=== PATIENT | male | born 1945 | race Caucasian/White ===

== ENCOUNTER 2017-01-21 07:07 | Day surgery (SDC) | payer MEDICARE, BC ==
--- NOTE | 2017-01-18 14:08 | HP ---
CC: Dr. Galicia * HISTORY AND PHYSICAL: DATE OF PLANNED ADMISSION AND SURGERY: 01/21/17 CHIEF COMPLAINT: Mr. Saucedo is a 71-year-old white male who is admitted with bladder outlet obstruction and bladder calculi for cystoscopy and cystolitholapaxy. I have been following Mr. Saucedo for several years because of bladder outlet obstruction and prostate enlargement. He has been maintained on tamsulosin and finasteride. More recently, his voiding has become more bothersome with increasing urgency, frequency, and decreased urinary stream. He also noted episodes of gross hematuria. He was worked up with renal ultrasound, which showed normal kidneys. Bladder ultrasound showed an enlarged prostate and there were 2 to 3 bladder calculi. Cystoscopy showed an enlarged prostate and there were 2 bladder calculi noted measuring about 1.5 cm each. Postvoid bladder ultrasound showed good bladder emptying. Because of the above history and findings, the patient is admitted for cystolitholapaxy. I gave him the option of performing a transurethral resection of the prostate at the same time, but he felt that his voiding is adequate on the medical treatment, and will hold off on the TURP at this time. PAST MEDICAL HISTORY AND SYSTEM REVIEW: He is a nonsmoker. He has history of thoracic aortic aneurysm, which has been stable for the last 5 years and is followed by the [facility]. He has hypertension, elevated lipids. He denies any history of coronary artery disease. MEDICATIONS: He is maintained on: 1. Lisinopril 5 mg daily. 2. Fluticasone 50 mcg. 3. Hydroxyzine 25 mg 3 times per day. 4. Inhalers for asthma. 5. Vitamins. ALLERGIES: He denies any allergies to medications. I am including the last cardiology note from his visit in May 2016. 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 He stopped smoking in 1975. No alcohol intake. PHYSICAL EXAMINATION GENERAL: Moderately overweight, otherwise healthy looking white male, who looks his age. VITAL SIGNS: Blood pressure 136/90, pulse of 70. LUNGS: Clear. HEART: Regular and rhythmic. No murmurs. ABDOMEN: Soft. No masses, no tenderness. No CVA tenderness. GENITALIA: External genitalia are normal. RECTAL: Shows a moderately enlarged, but nonsuspicious prostate. IMPRESSION: 1. Bladder outlet obstruction with bladder calculi. 2. Hypertension. 3. Stable thoracic aortic aneurysm. PLAN: Plan is for cystoscopy and cystolitholapaxy. I discussed the above plans in detail with the patient. All his questions were answered. [id number]/[facility] #: [id number] ULYSSES
[~2017-01-21 07:07] MED LIST: Buffered Lidocaine 0.9% SYRIN* 5 ML/SYR SYRINGE INTRADERM ONE
[2017-01-21] MEDS ORDERED: Buffered Lidocaine 0.9% SYRIN* 5 ML/SYR SYRINGE ONE (07:35)
[2017-01-21] MEDS ORDERED: ceFAZolin 2 GM PREMIX (*) 50 ML IVPB ONE (07:36)
[2017-01-21] MEDS ORDERED: fentaNYL* 50 MCG/ML 2 ML VIAL (100 MCG VIAL) ONE (09:03)
[2017-01-21] MEDS ORDERED: Chloroprocaine 2%* 20 ML VIAL ONE (09:03)
[2017-01-21] MEDS ORDERED: Midazolam* 1 MG/ML 5 ML VIAL (5 MG) ONE (09:03)
[2017-01-21] MEDS ORDERED: fentaNYL* 50 MCG/ML 2 ML VIAL (100 MCG VIAL) IV PRN (09:25)
[2017-01-21 11:19] VITALS: BP 105/76
--- NOTE | 2017-01-22 02:51 | OP ---
CC: Dr. Galicia* DATE OF OPERATION: 01/21/17 - [facility] DATE OF : 41 SURGEON: Mino Murillo MD. ANESTHESIOLOGIST: Dr. Roberto Parry. ANESTHESIA: Spinal. PRE-OP DIAGNOSES: 1. Benign prostatic hyperplasia. 2. Bladder calculi. POST-OP DIAGNOSES: 1. Benign prostatic hyperplasia. 2. 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 3. Two bladder calculi (1-1.5 cm each). OPERATIVE PROCEDURES: 1. Cystoscopy. 2. Cystolithopaxy (2 calculi 1 to 1.5 cm each). INDICATION FOR PROCEDURE: Mr. Saucedo is a 71-year-old white male who has a long history of bladder outlet obstruction caused by prostate enlargement. He responded well to medical treatment with tamsulosin and finasteride and has adequate bladder emptying. He was worked up because of hematuria. Renal ultrasound was normal. Cystoscopy showed 2 bladder calculi measuring 1 to 1.5 cm each. The patient is admitted for cystolithopexy. PATHOLOGY AT CYSTOSCOPY: The penile and bulbar urethrae looked normal. The prostatic urethra measured about 2.5 to 3 cm in length and there was a moderate degree of obstruction by trilobar hyperplasia of the prostate. At the level of the verumontanum, there was a false passage or duplicated prostatic urethra. 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 No suspicious lesions were seen in it. Examination of the bladder showed moderate diffuse trabeculations. There were no suspicious bladder lesions seen. The ureteral orifices looked normal. There were 2 calculi measuring 1 to 1.5 cm each in the base of the bladder. DESCRIPTION OF PROCEDURE: After successful spinal anesthesia, the patient was placed in the lithotomy position and was prepped and draped for cystoscopy. Cystoscopy was performed. The findings in the prostatic urethra and the false passage in the prostatic urethra level were noted. The bladder was then entered and inspected and the above findings were noted. The stone crushing forceps were then introduced inside the bladder. The bladder was filled up with irrigation fluid. Each calculus was then grasped with the stone crushing forceps, brought into the center of the bladder lumen away from the bladder wall and was crushed. The stone fragments were then evacuated with the Alvin evacuator. Final inspection showed no residual bladder calculi and no bladder wall injury. The scope was removed and a size #18 English catheter was passed inside the bladder and the balloon inflated with 10 cc of water. The patient tolerated the procedure well and left the operating room in good condition. [id number]/[facility] #: [id number] MTDAngelica
== END 2017-01-21 12:08 | disposition home or self-care (01) ==
LOC: OR 07:07
PROVIDERS: ATTEND Urology
DX: N21.0 Calculus in bladder (principal); N36.5 Urethral false passage; N40.1 Benign prostatic hyperplasia with lower urinary tract symptoms; N13.8 Other obstructive and reflux uropathy; I10 Essential (primary) hypertension; I71.2 Thoracic aortic aneurysm, without rupture; J44.9 Chronic obstructive pulmonary disease, unspecified; Z87.891 Personal history of nicotine dependence
CPT/HCPCS: 82365; 88300; J0690; J2250; J2400; J3010

== ENCOUNTER 2018-01-01 07:28 | Emergency (ER) | payer MEDICARE ==
[2018-01-01 07:49] VITALS: BP 144/66
--- NOTE | 2018-01-01 07:59 | UC ---
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 " didnt know it was there until his friend told him there was a bump. he doesnt have any pain. -denies fevers/chills and night sweats. He is on Bactrim 800 mg bid x10d for UTI. Started 12/29/17. - History of Current Complaint Chief Complaint: UCSkin Time Seen by Provider: 01/01/18 07:36 Stated Complaint: SKIN CONCERN Pain Intensity: 0 - Allergy/Home Medications Allergies/Adverse Reactions: Allergies Allergy/AdvReac Type Severity Reaction Status Date / Time No Known Allergies Allergy Verified 01/01/18 07:40 Home Medications: Home Medications Sulfamethox/Trimethoprim DS* [Bactrim DS 800/160 TAB*] 1 tab PO BID 01/01/18 [ History Confirmed 01/01/18] Review of Systems Constitutional: Negative Skin: Other - see above Eyes: Negative ENT: Negative Respiratory: Negative Cardiovascular: Negative Gastrointestinal: Negative Genitourinary: Negative Motor: Negative Neurovascular: Negative Musculoskeletal: Negative Neurological: Negative Psychological: Negative Is Patient Immunocompromised?: No All Other Systems Reviewed And Are Negative: Yes PMH/Surg Hx/FS Hx/Imm Hx Previously Healthy: Yes Respiratory History: COPD Other GI/ History: BPH Other History Of: Negative For: HIV, Hepatitis B, Hepatitis C, Anticoagulant Therapy - Surgical History Surgical History: Yes Surgery Procedure, Year, and Place: hiatal hernia repair 2010 - [facility]. neck surgery with bone graft 1988 AT [facility]EL - [facility]. Right inguinal hernia repair - 1967 [facility]. left inguinal hernia repair 1991 - [facility] - Family History Known Family History: Positive: Cardiac Disease, Other - Aneurysm. - Social History Alcohol Use: None Substance Use Type: Excessive Caffeine Substance Use Comment - Amount & Last Used: reports 1 to 2 pots coffee per day Smoking Status (MU): Former Smoker Amount Used/How Often: 3 ppd When Did the Patient Quit Smoking/Using Tobacco: 1975 Physical Exam Triage Information Reviewed: Yes Appearance: Well-Appearing, No Pain Distress, Well-Nourished Vital Signs: Initial Vital Signs Temp 98 F 01/01/18 07:43 Pulse 53 01/01/18 07:43 Resp 16 01/01/18 07:43 BP 144/66 01/01/18 07:43 Pulse Ox 96 01/01/18 07:43 Vital Signs Reviewed: Yes Respiratory Exam: Normal Respiratory: Positive: Lungs clear Cardiovascular Exam: Normal Cardiovascular: Positive: RRR Abdomen Description: Positive: Nontender, Soft Musculoskeletal Exam: Normal Neurological Exam: Normal Psychological Exam: Normal Skin: Positive: Other - right upper back w/ ~ tangerine sized abcess w/ purulent d/c coming out of 3 pores. no surrounding cellulitis, but erythematous over the abcess Course/Dx - Course Course Of Treatment: time out performed. accepted procedure. Tessy Russell RN present for procedure. I&D performed today in usual fashion. 0.5cc lidocaine w/ epi injected. betadine, incision made in usual fashion. copiuos purulent/bloody d/c extracted. packed w/ iodoform and covered w/ gauze that was secured. Tolerated well. - Differential Diagnoses - Skin Complaint Differential Diagnoses: Abscess, Cellulitis - Diagnoses Provider Diagnoses: abscess Discharge - Sign-Out/Discharge Documenting (check all that apply): Patient Departure, Post-Discharge Follow Up - Discharge Plan Condition: Stable Disposition: HOME Patient Education Materials: Abscess (ED) Referrals: Ashley Galicia MD [Primary Care Provider] - Demetra Beverly MD [Medical Doctor] - 1 Day Additional Instructions: -You should call the surgeon, Dr Beverly [phone] first thing in the morning so that you can be seen tomorrow. The packing that I placed inside the wound needs to be changed tomorrow. -We ordered a wound culture to check what bacteria is causing the infection. The antibiotic you are currently on for your urinary tract infection called Bactrim is typically very good for these kinds of infections. We will know in a few days if there is resistance to this antibiotic. I will defer any further antibiotic management to the surgeon he will be seen for this. They may want to extend it for a longer period of time as well. -Do not remove the dressing on your own. -Make sure to take a probiotic daily while on antibiotics to help prevent a potential complication of antibiotic use called c diff. Some well known brands that can be found OTC are florastor, align and IMT. Make sure to complete the entire prescription unless advised otherwise by your health care provider. - Billing Disposition and Condition Condition: STABLE Disposition: Home
[2018-01-01] MEDS ORDERED: Lidocaine 2% W/EPI 1:100,000* 20 ML MDV ONE (08:06)
[2018-01-01] MEDS ORDERED: Lidocaine 1% MPF* 2 ML VIAL INJ ONE (08:35)
== END 2018-01-01 08:59 | disposition home or self-care (01) ==
LOC: UCCORT 07:28
DX: Z87.891 Personal history of nicotine dependence (principal); L02.212 Cutaneous abscess of back [any part, except buttock and flank]
CPT/HCPCS: 10060; 87070; 87205; 87640; 87641; 99212; G0463

== ENCOUNTER 2018-02-06 07:11 | Observation (INO) | payer MEDICARE ==
--- NOTE | 2018-01-18 10:33 | HP ---
CC: Dr. Galicia. HISTORY AND PHYSICAL: DATE OF PLANNED ADMISSION AND SURGERY: 02/06/18 HISTORY OF PRESENT ILLNESS: Mr. Saucedo is a 72-year-old white male who is admitted with bladder calculi, prostate enlargement and bladder outlet obstruction, recurrent episodes of urinary tract infections for cystoscopy, cystolitholapaxy, and transurethral resection of the prostate. I have been following Mr. Troy for the last several years because of prostate enlargement and bladder outlet obstruction. He has been maintained on tamsulosin and finasteride. He was noted last year to have episodes of gross hematuria and recurrent urinary tract infections. He was worked up with cystoscopy which showed bladder calculi and an enlarged obstructing prostate. He had minimal post void residual. On 01/21/17, he was admitted and underwent cystoscopy and cystolitholapaxy. Because he was emptying his bladder well it was decided not to perform transurethral resection of the prostate and to continue managing his obstructive voiding symptoms medically. On the followup visits, he was noted to have recurrence of the urinary tract infections and repeat cystoscopy showed 2 new bladder calculi measuring 1 cm each that have recurred since his last procedure. The prostate was enlarged and obstructing. Because of the above history, the recurrence of the bladder calculi, and the recurrent urinary tract infection and obstructive symptoms, the above operation was advised and accepted. PAST MEDICAL HISTORY AND SYSTEM REVIEW: He has a history of thoracic aortic aneurysm which has been stable for the last 6 years and is followed by the [facility]. He has elevated lipids, history of coronary artery disease, and hypertension. MEDICATIONS: He is maintained on: 1. Lisinopril 5 mg daily. 2. Hydroxyzine 25 mg 3 times per day. 3. Fluticasone 50 mcg daily inhalers for asthma. 4. Finasteride and tamsulosin for his prostate. ALLERGIES: He denies any allergies to medications. I had included the Cardiology consult note from his visit to his physician allergist immunologist in May 2016, this note is included in his admission records for 01/21/17. PHYSICAL EXAMINATION GENERAL: Moderately overweight, healthy-looking for age. VITAL SIGNS: Blood pressure 120/80, pulse of 50, oxygen saturation 97% on room air. LUNGS: Clear. HEART: Regular and rhythmic, no murmurs. ABDOMEN: Soft, no masses, no tenderness, and no CVA tenderness. RECTAL: Shows an enlarged but nonsuspicious prostate. IMPRESSION: 1. Benign prostatic hyperplasia and bladder outlet obstruction. 2. Recurrent bladder calculi. 3. Recurrent urinary tract infections due to above. 4. Hypertension. 5. Stable thoracic aortic aneurysm. PLAN/RECOMMENDATIONS: For cystoscopy, cystolitholapaxy, and transurethral resection of the prostate. I had discussed the procedure in detail with the patient. Some of the potential complication of the procedure including hematuria, urinary tract infections, small incidents of incontinence. All his questions were answered. [id number]/[facility] #: [id number] ULYSSES
[2018-02-06] MEDS ORDERED: cefTRIAXone(*) 2 GM ADDV.VIAL IVPB ONE (07:15)
[2018-02-06] MEDS ORDERED: fentaNYL* 50 MCG/ML 2 ML VIAL (100 MCG VIAL) ONE (08:04)
[2018-02-06] MEDS ORDERED: Midazolam* 1 MG/ML 2 ML VIAL (2 MG) ONE (08:04)
[2018-02-06] MEDS ORDERED: Bupivacaine 0.5% PF 10 ML VIAL INJ ONE (08:50)
[2018-02-06] MEDS ORDERED: Lidocaine 2% PF * 5 ML VIAL ONE (08:51)
[2018-02-06] MEDS ORDERED: Propofol* 10 MG/ML 20 ML BTL IV PUSH ONE (09:15)
[2018-02-06] MEDS ORDERED: Dexamethasone IV* 4 MG/ML 1 ML (4 MG) ONE (09:15)
[2018-02-06] MEDS ORDERED: Famotidine IV* 10 MG/ML 2 ML (20 mg) ONE (09:15)
[2018-02-06] MEDS ORDERED: Levalbuterol 0.63MG/3ML NEB* UNIT OF USE INH PRN (09:24)
[2018-02-06] MEDS ORDERED: Acetaminophen TAB* 325 MG PO PRN (09:24)
[2018-02-06] MEDS ORDERED: DiMENhydriNATE IV* 50 MG/ML VIAL IV PUSH PRN (09:24)
[2018-02-06] MEDS ORDERED: Ondansetron INJ* 2 MG/ML VIAL IV PRN (09:24)
[2018-02-06] MEDS ORDERED: diPHENhydraMINE IV* 50 MG/ML 1 ml VIAL (BENADRYL) IV PRN (09:24)
[2018-02-06] MEDS ORDERED: Naloxone* 0.4 MG/ML 1 ML VIAL IV PRN (09:24)
[2018-02-06] MEDS ORDERED: Nalbuphine* 10 MG/ML 1 ML VIAL IV PRN (09:24)
[2018-02-06] MEDS ORDERED: fentaNYL* 50 MCG/ML 2 ML VIAL (100 MCG VIAL) IV PRN (09:24)
[2018-02-06] MEDS ORDERED: HYDROcodone/ACETAMIN 5-325 MG* 1 TAB PO PRN ×2 (09:24)
[2018-02-06] MEDS ORDERED: PROCHLORPERAZINE INJ 5 MG/ML 2 ML VIAL IV PRN (09:24)
[2018-02-06] MEDS ORDERED: Albuterol HFA INHALER* 8 gm MDI INH PRN (10:22)
[2018-02-06] MEDS ORDERED: HYDROcodone/ACETAM 10-325 MG(NF) 1 TAB PO PRN ×2 (10:22→17:00)
[2018-02-06] MEDS ORDERED: Mometasone 220 MCG MDI INH PRN (10:22)
[2018-02-06] MEDS ORDERED: Hydrocodone/Acetamin 10/325 1 TAB PO PRN ×3 (17:00→18:26)
[2018-02-06] MEDS ORDERED: Lisinopril TAB* 5 MG PO SCH (18:00)
[2018-02-06] MEDS: Morphine TAB Extended Release (*) 15 MG TAB.ER PO SCH (18:37)
[2018-02-06] MEDS: Morphine TAB Extended Release (*) 30 MG TAB.ER PO SCH (18:39)
--- NOTE | 2018-02-07 03:11 | OP ---
CC: Dr. Galicia * DATE OF OPERATION: 02/06/18 - ROOM #339 DATE OF : 41 SURGEON: Mino Murillo MD ANESTHESIOLOGIST: Dr. Joshua Mayer ANESTHESIA: Spinal. PRE-OPERATIVE DIAGNOSES: 1. Recurrent bladder calculi. 2. Benign prostatic hyperplasia. 3. Bladder outlet obstruction due to above. POST-OPERATIVE DIAGNOSES: 1. Recurrent bladder calculi. 2. Benign prostatic hyperplasia. 3. Bladder outlet obstruction due to above. OPERATIVE PROCEDURE: 1. Cystoscopy. 2. Cystolitholapaxy. 3. Transurethral resection of the prostate. INDICATION FOR PROCEDURE: Mr. Saucedo is a 72-year-old white male whom I have been following because of recurrent urinary tract infections, bladder calculi and prostate enlargement with bladder outlet obstruction. One year ago, he underwent cystoscopy and cystolitholapaxy. He had recurrence of his bladder calculi and recurrent urinary tract infections. Cystoscopy showed an obstructing prostate. Because of the above history of recurrent infections and recurrent bladder calculi, with prostate enlargement and obstruction, the above operation was advised and accepted. Pathology: At cystoscopy, the penile and bulbar urethrae looked normal. The prostatic urethra measured 3-cm in length and there was significant degree of obstruction by bilobar hyperplasia of the prostate. Examination of the bladder showed two calculi each measuring about 1-cm in size. The bladder wall showed moderate diffuse trabeculations. The ureteral orifices looked normal. No suspicious of bladder lesions and no diverticula were noted. The prostate adenoma was moderately vascular. DESCRIPTION OF PROCEDURE: After successful spinal anesthesia, the patient was placed in the lithotomy position and was prepped and draped for a cystoscopy. Cystoscopy was performed. The bladder was carefully inspected and the above findings were noted. The stone crushing forceps was introduced inside the bladder. Each stone was grabbed separately, brought into the center of the bladder lumen away from the bladder wall and the stones crushed. The bladder was then irrigated and all the stone fragments were extracted. The resectoscope was then introduced inside the bladder. Mannitol-sorbitol solution was used for irrigation and the inflow and outflow were adjusted to avoid overdistention of the bladder. The portions of the lateral lobes protruding inside the bladder neck were then resected circumferentially. A small median lobe was resected. The resectoscope was then positioned in the mid prostatic urethra and the adenomatous tissue was resected circumferentially. The resectoscope was then positioned at the level of the verumontanum. The left lateral lobe was then resected starting at 5 o'clock and proceeding anteriorly. The right lobe was resected next. The apical tissue and the anterior tissue were resected next. The limits of resection were the bladder neck proximally, the verumontanum distally and the capsule circumferentially. At the completion of the resection, the external sphincter and the verumontanum were intact. The capsule was intact and no deep cuts and no open sinuses. The prostatic urethra was wide open. The bladder wall and the ureteral orifices were intact. After making sure that there was good hemostasis and after evacuating all the prostate chips, the resectoscope was removed and a size 22-Japanese Espinosa catheter was passed inside the bladder and the balloon inflated with 40 cc of water. The catheter was placed under gentle traction and taped to the right thigh of the patient. Irrigation yielded clear returns. The patient tolerated the procedure well and left the operating room in good condition. The blood loss was estimated at about 50 cc. The specimens were fragments of bladder calculi and prostate chips. [id number]/[facility] #: [id number] [facility] CENTERAngelica
[2018-02-07 06:57] LABS: EGFR Non-African American 122.2 (>60)
[2018-02-07] MEDS ORDERED: cefTRIAXone(*) 1 GM in NS 0.9% 50 ML* 50 ML IVPB ONE (07:00)
[2018-02-07] MEDS: Morphine TAB Extended Release (*) 30 MG TAB.ER PO SCH (08:26)
[2018-02-07] MEDS: Morphine TAB Extended Release (*) 15 MG TAB.ER PO SCH (08:27)
[2018-02-07 08:57] VITALS: BP 139/73
[2018-02-07] MEDS ORDERED: CMC:OMEGA-3 FATTY ACIDS (NF) 1,000 MG CAP PO SCH (09:00)
[2018-02-07] MEDS ORDERED: Cetirizine* 10 MG TAB PO SCH (09:00)
[2018-02-07] MEDS ORDERED: IRON 65 MG PO SCH (09:00)
[2018-02-07] MEDS ORDERED: Montelukast Sodium TAB* 10 MG PO SCH (09:00)
--- NOTE | 2018-02-09 01:36 | DS ---
CC: Dr. Galicia * DISCHARGE SUMMARY: DATE OF ADMISSION: 02/06/18 DATE OF DISCHARGE: 02/07/18 FINAL DIAGNOSES: 1. Benign prostatic hyperplasia. 2. Bladder calculi. 3. Recurrent urinary tract infections due to above. 4. Hypertension. OPERATION: 1. Cystolitholapaxy. 2. Transurethral resection of the prostate on 02/06/18. HISTORY: Mr. Saucedo is a 72-year-old male who had a long history of bladder outlet obstruction due to prostate enlargement. He had been maintained on tamsulosin and finasteride. Last year, he was noted to have recurrent episodes of gross hematuria and urinary tract infections. He was worked up and cystoscopy at that time showed bladder calculi and enlarged obstructing prostate and his postvoid residual was minimal. On 01/21/17, he underwent cystoscopy and cystolitholapaxy. No TURP was done because he was responding to the medical treatment with good bladder emptying. He was followed, and he had recurrence of urinary tract infections and cystoscopy showed 2 new bladder calculi each measuring about 1 cm in size. Because of the above history, the recurrence of the bladder calculi and recurrence of the urinary tract infections in spite of full medical treatment for his prostate enlargement and obstruction, the above operation was advised and accepted. PAST MEDICAL HISTORY AND SYSTEM REVIEW: He has history of thoracic aortic aneurysm, which has been stable for the last 6 years and followed at the cardiology service at [facility]. He has elevated lipids, history of coronary artery disease, and hypertension. MEDICATIONS: He is maintained on the following medications: 1. Lisinopril 5 mg daily. 2. Hydroxyzine 25 mg 3 times per day. 3. Finasteride 5 mg daily. 4. Tamsulosin 0.4 mg daily. ALLERGIES: He denies any allergies to medications. PHYSICAL EXAMINATION: His preoperative physical examination was within normal. Rectal exam showed an enlarged, but not suspicious prostate. LABORATORY DATA: Preoperative lab work was also within normal. COURSE IN HOSPITAL: The patient was admitted on the morning of the surgery. He underwent an uncomplicated cystolitholapaxy and transurethral resection of the prostate. He was observed overnight. He did very well and by the morning, his urine was clear and his vital signs were normal. The patient is being discharged home on all his preoperative medications with the exception of tamsulosin. He will be seen in the office in 1 week for Espinosa catheter removal. Instructions were given for followup care. Pathology showed benign prostate tissue.. [id number]/[facility] #: [id number] ULYSSES
== END 2018-02-07 09:40 | disposition home or self-care (01) ==
LOC: OR 07:11 → SSU 12:41
PROVIDERS: ADMIT Urology; ATTEND Urology
DX: N40.1 Benign prostatic hyperplasia with lower urinary tract symptoms (principal); N13.8 Other obstructive and reflux uropathy; N20.0 Calculus of kidney; N39.0 Urinary tract infection, site not specified; I10 Essential (primary) hypertension; I71.2 Thoracic aortic aneurysm, without rupture; Z87.442 Personal history of urinary calculi
CPT/HCPCS: 36415; 80048; 82365; 88300; 88305; 96374; A9270-GY; G0378; J0696; J1100; J2250; J2704; J3010

== ENCOUNTER 2018-08-18 18:28 | Emergency (ER) | payer MEDICARE ==
[2018-08-18 18:55] VITALS: BP 129/61
[2018-08-18] MEDS ORDERED: Albuterol/Ipratropium NEB.SOL* Albuterol 2.5 MG/Ipratropium 0.5 MG 3 ML INH ONE (19:03)
--- NOTE | 2018-08-18 19:13 | UC ---
Respiratory Complaint HPI - HPI Summary HPI Summary: Pt presents with c/o nausea and confusion after taking zithromax last night. Pt was prescribe z- pac by PCP for what he believes is a sinus infection. Pt also c/o fatigue and states he slept all day today. He reports that he just does not feel right. Denies REBOLLAR< chest pain and believes he has a sinus infection. - History of Current Complaint Chief Complaint: UCRespiratory Stated Complaint: SINUSES Time Seen by Provider: 08/18/18 18:42 Hx Obtained From: Patient Onset/Duration: Gradual Onset, Lasting Days Timing: Constant Severity Initially: Moderate Severity Currently: Severe Pain Intensity: 0 Character: Cough: Productive Aggravating Factors: Deep Breaths, Recumbent Position Alleviating Factors: Nothing Associated Signs And Symptoms: Positive: URI - Risk Factors Pulmonary Embolism Risk Factors: Negative Cardiac Risk Factors: Hypertension, Elevated Lipids Pseudomonas Risk Factors: Chronic Lung Disease Tuberculosis Risk Factors: Negative - Allergies/Home Medications Allergies/Adverse Reactions: Allergies Allergy/AdvReac Type Severity Reaction Status Date / Time No Known Allergies Allergy Verified 02/06/18 07:27 Home Medications: Home Medications Acetaminop/Codeine 30 MG TAB* [Tylenol/Codeine 30 MG TAB*] 1 tab PO Q6H PRN [History Confirmed 08/18/18] PMH/Surg Hx/FS Hx/Imm Hx Previously Healthy: Yes Cardiovascular History: Cardiac Disease, Hypertension Respiratory History: COPD Other History Of: Negative For: HIV, Hepatitis B, Hepatitis C, Anticoagulant Therapy - Surgical History Surgical History: Yes Surgery Procedure, Year, and Place: hiatal hernia repair 2010 - [facility]. neck surgery with bone graft 1988 AT [facility] - [facility]. Right inguinal hernia repair - 1967 [facility]. left inguinal hernia repair 1991 - [facility]. PROSTATE SURGERY - Family History Known Family History: Positive: Cardiac Disease, Other - Aneurysm. - Social History Occupation: Employed Full-time Lives: With Family Alcohol Use: None Substance Use Type: Excessive Caffeine Substance Use Comment - Amount & Last Used: reports 1 to 2 pots coffee per day Smoking Status (MU): Former Smoker Type: Cigarettes Amount Used/How Often: 3 ppd When Did the Patient Quit Smoking/Using Tobacco: 1975 - Immunization History Most Recent Influenza Vaccination: fall 2016 Most Recent Pneumonia Vaccination: 2012 Vaccination Up to Date: No Review of Systems All Other Systems Reviewed And Are Negative: Yes Constitutional: Positive: Fatigue Skin: Positive: Negative Eyes: Positive: Negative ENT: Positive: Sinus Congestion Respiratory: Positive: Cough Cardiovascular: Positive: Negative Gastrointestinal: Positive: Negative Genitourinary: Positive: Negative Motor: Positive: Negative Neurovascular: Positive: Negative Musculoskeletal: Positive: Negative Neurological: Positive: Negative Psychological: Positive: Negative Is Patient Immunocompromised?: No Physical Exam Triage Information Reviewed: Yes Appearance: Ill-Appearing Vital Signs: Initial Vital Signs Temp 98.6 F 08/18/18 18:48 Pulse 72 08/18/18 18:48 Resp 18 08/18/18 18:48 BP 129/61 08/18/18 18:48 Pulse Ox 94 08/18/18 18:48 Vital Signs Reviewed: Yes Eye Exam: Normal ENT: Positive: Nasal congestion Dental Exam: Normal Neck exam: Normal Respiratory: Positive: Decreased breath sounds Cardiovascular Exam: Normal Musculoskeletal Exam: Normal Neurological Exam: Normal Psychological Exam: Normal Skin Exam: Normal Respiratory Course/Dx - Course Course Of Treatment: I discussed with the pt that I wanted him to go directly to the Emergency room for further evaluation and testing. Pt refused ambulance and stated that he would not be going to the ER. Pt verbalized understanding that his condition could worsen and that he was not going to go to the closest ER. - Differential Dx/Diagnosis Differential Diagnosis/HQI/PQRI: Other - pneumonia Provider Diagnosis: Pneumonia Discharge - Sign-Out/Discharge Documenting (check all that apply): Patient Departure All imaging exams completed and their final reports reviewed: No - Discharge Plan Condition: Stable Disposition: HOME-RECOMMEND TO ED Prescriptions: Levofloxacin TAB* [Levaquin TAB*] 750 mg PO DAILY #7 tab predniSONE TAB* [Deltasone 10 MG TAB*] 30 mg PO DAILY #12 tab Patient Education Materials: Pneumonia (ED) Forms: *Work Release Referrals: Ashley Galicia MD [Primary Care Provider] - As Soon As Possible - Billing Disposition and Condition Condition: STABLE Disposition: Home-Recommend to ED - Attestation Statements Provider Attestation: I was available for consult. This patient was seen by the NA[facility]. The patient was not presented to, seen by, or examined by me. -Anne
[2018-08-18] MEDS ORDERED: Levofloxacin TAB* 250 MG PO ONE (19:44)
--- NOTE | 2018-08-19 09:28 | UC ---
- Progress Note Progress Note: no change tx Patient Name: ANG PACHECO Medical Record#: [id number] Ordering Physician: Britney Delaney HELPDESK MANAGER Acct.#: [id number] : 1945 Age: 72 Sex: M Location: [facility] Exam Date: 08/18/181901 ADM Status: DEP ER Order Information: CHEST PA & LAT 2 VWS Accession Number: [id number] CPT: 35665 INDICATION: Cough, shortness of breath. History of tobacco use. COMPARISON: August 10, 2017 through July 18, 2014 TECHNIQUE: Dual energy PA and routine lateral views of the chest were obtained. REPORT: Patchy consolidation at the RIGHT mid to upper lung zone. Negative for volume loss. Negative for pleural effusion or pneumothorax. Mild prominence of the RIGHT hilar contour compared with the prior exams. Negative for cardiomegaly. Unremarkable central pulmonary vasculature. Advanced arthropathy noted at the shoulders. IMPRESSION: #. Inflammatory infiltrate at the RIGHT mid to upper lung zone. #. Mild prominence of the RIGHT hilum which may reflect reactive lymphadenopathy however follow-up after treatment for pneumonia is needed to assess for resolution. If the RIGHT hilar prominence persists then contrast-enhanced CT would be suggested to assess for a mass lesion. R0 Preliminary Imaging Read R0 <Electronically signed by Clif Leggett MD in OV> 08/19/18814 Dictated By: Clif Leggett MD Dictated Date/Time: 08/19/18814 Transcribed Date/Time: 08/19/18810 Copy to: CC:Ashley Galicia MD; Yluiya Magallanes MD; Britney Delaney NP Imaging - [facility] Imaging - [facility] Imaging [facility] [address] [address] ph ([phone]) ph ([phone]) ph ([phone]) This report is only to be considered final once signed by the Provider(s) as displayed in the "<Electronically Signed by >" field (s). Absence of a signature indicates the report is in a draft status and still needs to be finalized. In the event this document was created by someone other than the signing Provider, the individual initiating the document will be listed in the "Entered by:" or "Dictated by:" griffith. 1 of 1 Course/Dx - Diagnoses Provider Diagnoses: Pneumonia Discharge - Sign-Out/Discharge Documenting (check all that apply): Post-Discharge Follow Up All imaging exams completed and their final reports reviewed: Yes - Discharge Plan Condition: Stable Disposition: HOME-RECOMMEND TO ED Prescriptions: Levofloxacin TAB* [Levaquin TAB*] 750 mg PO DAILY #7 tab predniSONE TAB* [Deltasone 10 MG TAB*] 30 mg PO DAILY #12 tab Patient Education Materials: Pneumonia (ED) Forms: *Work Release Referrals: Ashley Galicia MD [Primary Care Provider] - As Soon As Possible - Billing Disposition and Condition Condition: STABLE Disposition: Home-Recommend to ED
--- NOTE | 2018-08-19 09:46 | UC ---
- Progress Note Progress Note: I phoned pt on 08/19/18 at 0940 and left message to return this call to review his xray results and to review his need to follow up with his PCP. Pt was advised last night to go to the Emergency room but pt stated he refused to go. Course/Dx - Diagnoses Provider Diagnoses: Pneumonia Discharge - Sign-Out/Discharge Documenting (check all that apply): Post-Discharge Follow Up All imaging exams completed and their final reports reviewed: Yes - Discharge Plan Condition: Stable Disposition: HOME-RECOMMEND TO ED Prescriptions: Levofloxacin TAB* [Levaquin TAB*] 750 mg PO DAILY #7 tab predniSONE TAB* [Deltasone 10 MG TAB*] 30 mg PO DAILY #12 tab Patient Education Materials: Pneumonia (ED) Forms: *Work Release Referrals: Ashley Galicia MD [Primary Care Provider] - As Soon As Possible - Billing Disposition and Condition Condition: STABLE Disposition: Home-Recommend to ED
== END 2018-08-18 19:54 | disposition home health service (06) ==
LOC: UCCORT 18:28
DX: J18.9 Pneumonia, unspecified organism (principal); I10 Essential (primary) hypertension; J44.9 Chronic obstructive pulmonary disease, unspecified; Z87.891 Personal history of nicotine dependence
CPT/HCPCS: 71046; 99212; A9270-GY; G0463

== ENCOUNTER 2019-09-15 15:03 | Emergency (ER) | payer MEDICARE ==
--- OUTSIDE RECORDS SUMMARY | 2019-09-15 15:09 | XMS REPORT | Continuity of Care Document ---
:1945 External Reference #:[id number] Author Name Cholo Worthy D.O. (transmitted by agent of provider Janett Cordova) Address [address] [place] [address] Care Team Providers Name Role Phone HCP given Care Team Information Director Of Accreditation Unavailable Problems Active Problems Provider Date Chronic neck pain Onset: Chronic back pain Onset: Neuropathy Onset: Diarrhea [place] Onset: 03/19/2019 Long-term current use of opiate analgesic drug Cholo Worthy D.O. Onset: Postlaminectomy syndrome, not elsewhere Cholo Worthy D.O. Onset: 2018 classified Social History Type Date Description Comments Sex Unknown ETOH Use Denies alcohol use Recreational Drug Use Denies Drug Use Exercise Type/Frequency Does not exercise Sun Exposure Does not use sunscreen Seat Belt/Car Seat Seat Belt Use - No Allergies, Adverse Reactions, Alerts Description No Known Drug Allergies Medications Active Medications SIG Qnty Indications Ordering Date Provider Trelegy Ellipta inhale 1 puff by 28units Cholo Worthy, 08/15/2019 mouth daily for D.O. 100-62.5-25mcg/Inh obstructive lung Aerosol disease Doxycycline 1 tabs by mouth 60tabs J44.9 Cholo Worthy, 08/15/2019 Monohydrate twice a day for 30 D.O. 100mg days Tablets Lidocaine apply topically to 30gm G90.09 Cholo Worthy, 04/28/2019 4% Cream affected areas D.O. before bed and 3 or 4 times daily as needed for pain Fentanyl apply 1 patch to 10units G90.09 Cholo Worthy, 02/26/2019 50mcg/HR skin every 3 days D.O. Patches 72HR for pain M54.2 M54.5 Cetirizine HCL 1 by mouth every day Unknown 01/22/2019 10mg Tablets Ventolin HFA inhale 2 puffs by Unknown 01/22/2019 mouth every 4 hours as 108(90Base) mcg/Act needed for Aerosol bronchospasm Iron (OTC) daily Unknown 01/15/2019 Vitamin B12 (OTC) daily Unknown 01/15/2019 B 50 (OTC) daily Unknown 01/15/2019 Vitamin D3 (OTC) daily Unknown 01/15/2019 Fish Oil daily Unknown 01/15/2019 Flovent HFA 2 puffs twice a day Unknown 01/15/2019 220mcg/Act for copd, rinse mouth Aerosol after use as needed Combivent Respimat 1 puffs every 4 hours Unknown 01/15/2019 as needed for asthma 20-100mcg/Act Aerosol symptoms/cough/sob Montelukast Sodium take 1 tablet by mouth 90tabs J45.40 Cholo Worthy, 10mg once daily D.O. Tablets Hydrocodone-Acetamino take 2 tablets every 8 90tabs M54.2 Cholo Worthy, 11/13/2018 phen hours D.O. 10-325mg Tablets M54.5 G90.09 History Medications Diphenoxylate-Atropine take 2 tablets 14tabs Silcoff, 02/26/2019 - 2.5-0.025mg by mouth 4 Sepideh Lyles 04/17/2019 Tablets times per day as needed for diarrhea Immunizations CPT Code Status Date Vaccine Lot # [id number] Given 06/18/2019 Adacel or Boostrix, TDaP [id number] Given 04/17/2019 Prevnar 13 [id number] Given 03/12/2019 Influenza Vaccine, Inactivated, Subunit, [id number] Adjuvanted, For Intrmusc Q2038 Given 03/06/2018 Influenza Vaccine (Fluzone) Administered Age 3 And Older Q2038 Given 03/01/2016 Influenza Vaccine (Fluzone) Administered Age 3 And Older Q2038 Given 03/03/2015 Influenza Vaccine (Fluzone) Administered Age 3 And Older 21662 Given 08/06/1999 Td Immunization Vital Signs Date Vital Result Comment 08/15/2019 2:39pm BP Systolic 138 mmHg BP Diastolic 88 mmHg Heart Rate 74 /min O2 % BldC Oximetry 92 % Weight 174.00 lb w/shoes 06/18/2019 10:38am BP Systolic 144 mmHg BP Diastolic 88 mmHg Heart Rate 58 /min O2 % BldC Oximetry 94 % Height 67.50 inches 5'7.50" taken 06/04/19 Weight 177.00 lb taken 06/04/19 BMI (Body Mass Index) 27.3 kg/m2 Results Description No Information Available Procedures Date Code Description Status 10/20/2017 07726421 Colonoscopy Completed Medical Devices Description No Information Available Encounters Type Date Location Provider Dx Diagnosis Office Visit 06/18/2019 Main Office Cholo Worthy, Z79.891 halfway ( current) 10:00a D.O. use of opiate analgesic M96.1 Postlaminectomy syndrome, not elsewhere classified M25.511 Pain in right shoulder G90.09 Other idiopathic peripheral autonomic neuropathy J44.9 Chronic obstructive pulmonary disease, unspecified Z91.81 History of falling Z23 Encounter for immunization Z68.27 Body mass index (BMI) 27.0-27.9, adult Office Visit 04/28/2019 9:45a Main Office Cholo Worthy, Z79.891 manager terminal D.O. (current) use of opiate analgesic M96.1 Postlaminectomy syndrome, not elsewhere classified M25.511 Pain in right shoulder M25.512 Pain in left shoulder G90.09 Other idiopathic peripheral autonomic neuropathy M54.5 Low back pain M54.2 Cervicalgia Office Visit 04/17/2019 8:55a Main Office Cholo Worthy, D.O. M54.5 Low back pain M54.2 Cervicalgia M25.511 Pain in right shoulder M25.512 Pain in left shoulder Z23 Encounter for immunization Z41.8 [facility] Postlaminectomy syndrome, not elsewhere classified Z79.891 manager terminal (current) use of opiate analgesic Office Visit 03/19/2019 10:20a Main Office Mile Magana, R19.7 Diarrhea, P.A. unspecified Office Visit 02/26/2019 9:45a Main Office Sopchak, Cholo, M54.2 Cervicalgia D.O. M54.5 Low back pain M79.604 Pain in right leg M79.605 Pain in left leg Z79.891 halfway (current) use of opiate analgesic J44.9 Chronic obstructive pulmonary disease, unspecified I71.9 Aortic aneurysm of unspecified site, without rupture G90.09 Other idiopathic peripheral autonomic neuropathy Assessments Date Code Description Provider 08/15/2019 M96.1 Postlaminectomy syndrome, not elsewhere Cholo Worthy D.O. classified 08/15/2019 Z79.891 halfway (current) use of opiate analgesic Cholo Worthy D.O. 08/15/2019 G90.09 Other idiopathic peripheral autonomic Cholo Worthy D.O. neuropathy 08/15/2019 J44.9 Chronic obstructive pulmonary disease, Cholo Worthy D.O. unspecified 06/18/2019 Z79.891 manager terminal (current) use of opiate analgesic Cholo Worthy D.O. 06/18/2019 M96.1 Postlaminectomy syndrome, not elsewhere Cholo Worthy D.O. classified 06/18/2019 M25.511 Pain in right shoulder Cholo Worthy D.OFlaquito 06/18/2019 G90.09 Other idiopathic peripheral autonomic Cholo Worthy D.O. neuropathy 06/18/2019 J44.9 Chronic obstructive pulmonary disease, Cholo Worthy D.O. unspecified 06/18/2019 Z91.81 History of falling Cholo Worthy D.O. 06/18/2019 Z23 Encounter for immunization Cholo Worthy D.O. 06/18/2019 Z68.27 Body mass index (BMI) 27.0-27.9, adult Cholo Worthy D.O. 06/04/2019 Z68.27 Body mass index (BMI) 27.0-27.9, adult Cholo Worthy D.O. 04/28/2019 Z79.891 manager terminal (current) use of opiate analgesic Cholo Worthy D.O. 04/28/2019 M96.1 Postlaminectomy syndrome, not elsewhere Cholo Worthy D.O. classified 04/28/2019 M25.511 Pain in right shoulder Cholo Worthy D.O. 04/28/2019 M25.512 Pain in left shoulder Cholo Worthy D.O. 04/28/2019 G90.09 Other idiopathic peripheral autonomic Cholo Worthy D.O. neuropathy 04/28/2019 M54.5 Low back pain Cholo Worthy D.O. 04/28/2019 M54.2 Cervicalgia Cholo Worthy D.O. 04/17/2019 M54.5 Low back pain Cholo Worthy D.O. 04/17/2019 M54.2 Cervicalgia Cholo Worthy D.O. 04/17/2019 M25.511 Pain in right shoulder Cholo Worthy D.O. 04/17/2019 M25.512 Pain in left shoulder Cholo Worthy D.O. 04/17/2019 Z23 Encounter for immunization Cholo Worthy D.O. 04/17/2019 Z41.8 Encounter for other procedures for purposes Cholo Worthy D.O. other than [facility] 04/17/2019 M96.1 Postlaminectomy syndrome, not elsewhere Cholo Worthy D.O. classified 04/17/2019 Z79.891 manager terminal (current) use of opiate analgesic Cholo Worthy D.O. 03/19/2019 R19.7 Diarrhea, unspecified Mile Magana, P.A. 03/12/2019 Z23 Encounter for immunization Nurse's Schedule 03/12/2019 Z41.8 Encounter for other procedures for purposes Nurse's Schedule other than [facility] 02/26/2019 M54.2 Cervicalgia Cholo Worthy D.O. 02/26/2019 M54.5 Low back pain Cholo Worthy D.O. 02/26/2019 M79.604 Pain in right leg Cholo Worthy D.O. 02/26/2019 M79.605 Pain in left leg Cholo Worthy D.O. 02/26/2019 Z79.891 halfway (current) use of opiate analgesic Cholo Worthy D.O. 02/26/2019 J44.9 Chronic obstructive pulmonary disease, Cholo Worthy D.O. unspecified 02/26/2019 I71.9 Aortic aneurysm of unspecified site, without Cholo Worthy D.O. rupture 02/26/2019 G90.09 Other idiopathic peripheral autonomic Cholo Worthy D.O. neuropathy Plan of Treatment 08/15/2019 - Cholo Worthy D.O.M96.1 Postlaminectomy syndrome, not elsewhere [id number] manager terminal (current) use of opiate bvjapdehoF07.09 Other idiopathic peripheral autonomic [id number] Chronic obstructive pulmonary disease, unspecifiedNew Medication:Doxycycline Monohydrate 100 mg - 1 tabs by mouth twice a day for 30 daysFollow up:1 month recheck lungs and sweatting episodes. Functional Status Description No Information Available Mental Status Description No Information Available Referrals Description No Information Available
--- OUTSIDE RECORDS SUMMARY | 2019-09-15 15:09 | XMS REPORT | Continuity of Care Document ---
:1945 External Reference #:[id number] Author Name Cholo Worthy D.O. (transmitted by agent of provider Mojgan Glover) Address [address] [place] [address] Care Team Providers Name Role Phone HCP given Care Team Information Toll Repairer Central Office Unavailable Problems Active Problems Provider Date Chronic [...] Medications SIG Qnty Indications Ordering Date Provider Trejesus Ellipmadelaine inhale 1 puff by 28units Cholo Worthy, [...] CPT Code Status Date Vaccine Lot # [id number] Given 06/18/2019 Adacel or Boostrix, TDaP [id number] 97136 Given 04/17/2019 Prevnar 13 [id number] 32963 Given 03/12/2019 Influenza Vaccine, Inactivated, Subunit, [id number] Adjuvanted, For Intrmusc Q2038 Given 03/06/2018 Influenza Vaccine (Fluzone) Administered Age 3 And Older Q2038 Given 03/01/2016 Influenza Vaccine (Fluzone) Administered Age 3 And Older Q2038 Given 03/03/2015 Influenza Vaccine (Fluzone) Administered Age 3 And Older 13742 Given 08/06/1999 Td Immunization Vital Signs Date [...] Available Procedures Date Code Description Status 10/20/2017 13105957 Colonoscopy Completed Medical Devices Description No Information Available Encounters Type Date Location Provider Dx Diagnosis Office Visit 08/15/2019 Main Office Cholo Worthy, M96.1 Postlaminectomy 2:45p D.O. syndrome, not elsewhere classified Z79.891 parimutuel clerk (current) use of opiate analgesic G90.09 Other idiopathic peripheral autonomic neuropathy J44.9 Chronic obstructive pulmonary disease, unspecified R23.2 [place] Office Visit 06/18/2019 10:00a Main Office Cholo Worthy, Z79.891 retirement D.O. (current) use of opiate analgesic M96.1 Postlaminectomy syndrome, not elsewhere classified M25.511 Pain in right shoulder G90.09 Other idiopathic peripheral autonomic neuropathy J44.9 Chronic obstructive pulmonary disease, unspecified Z91.81 History of falling Z23 Encounter for immunization Z68.27 Body mass index (BMI) 27.0-27.9, adult Office Visit 04/28/2019 9:45a Main Office Cholo Worthy, Z79.891 retirement D.O. (current) use of opiate analgesic M96.1 Postlaminectomy syndrome, not elsewhere classified M25.511 Pain in right shoulder M25.512 Pain in left shoulder G90.09 Other idiopathic peripheral autonomic neuropathy M54.5 Low back pain M54.2 Cervicalgia Office Visit 04/17/2019 8:55a Main Office Cholo Worthy D.O. M54.5 Low back pain M54.2 Cervicalgia M25.511 Pain in right shoulder M25.512 Pain in left shoulder Z23 Encounter for immunization Z41.8 Encntr for oth proc for purpose oth [facility] M96.1 Postlaminectomy syndrome, not elsewhere classified Z79.891 retirement (current) use of opiate analgesic Office Visit 03/19/2019 10:20a Main Office Mile Dittmer, R19.7 Diarrhea, P.A. unspecified Office Visit 02/26/2019 9:45a Main Office Cholo Worthy, M54.2 Cervicalgia D.O. M54.5 Low back pain M79.604 Pain in right leg M79.605 Pain in left leg Z79.891 retirement (current) use of opiate analgesic J44.9 Chronic obstructive pulmonary disease, unspecified I71.9 Aortic aneurysm of unspecified site, without rupture G90.09 Other idiopathic peripheral autonomic neuropathy Assessments Date Code Description Provider 08/15/2019 M96.1 Postlaminectomy syndrome, not elsewhere Cholo Worthy D.O. classified 08/15/2019 Z79.891 retirement (current) use of opiate analgesic Cholo Worthy D.O. 08/15/2019 G90.09 Other idiopathic peripheral autonomic Cholo Worthy D.O. neuropathy 08/15/2019 J44.9 Chronic obstructive pulmonary disease, Cholo Worthy D.O. unspecified 08/15/2019 R23.2 [place] Cholo Worthy D.O. 06/18/2019 Z79.891 parimutuel clerk (current) use of opiate analgesic Cholo Worthy D.O. 06/18/2019 M96.1 Postlaminectomy syndrome, not elsewhere Cholo Worthy D.O. classified 06/18/2019 M25.511 Pain in right shoulder Cholo Worthy D.O. 06/18/2019 G90.09 Other idiopathic peripheral autonomic Cholo Worthy D.O. neuropathy 06/18/2019 J44.9 Chronic obstructive pulmonary disease, Cholo Worthy D.O. unspecified 06/18/2019 Z91.81 History of falling Cholo Worthy D.O. 06/18/2019 Z23 Encounter for immunization Cholo Worthy D.O. 06/18/2019 Z68.27 Body mass index (BMI) 27.0-27.9, adult Cholo Worthy D.O. 06/04/2019 Z68.27 Body mass index (BMI) 27.0-27.9, adult Cholo Worthy D.O. 04/28/2019 Z79.891 parimutuel clerk (current) use of opiate analgesic Cholo Worthy D.O. 04/28/2019 M96.1 Postlaminectomy syndrome, not elsewhere Cholo Worthy D.O. classified 04/28/2019 M25.511 Pain in right shoulder Cholo Worthy D.O. 04/28/2019 M25.512 Pain in left shoulder Cholo Worthy D.O. 04/28/2019 G90.09 Other idiopathic peripheral autonomic Cholo Worthy D.O. neuropathy 04/28/2019 M54.5 Low back pain Cholo Worthy D.O. 04/28/2019 M54.2 Cervicalgia Cholo Worhty D.O. 04/17/2019 M54.5 Low back pain Cholo Worthy D.O. 04/17/2019 M54.2 Cervicalgia Cholo Worthy D.O. 04/17/2019 M25.511 Pain in right shoulder Cholo Worthy D.O. 04/17/2019 M25.512 Pain in left shoulder Cholo Worthy D.O. 04/17/2019 Z23 Encounter for immunization Cholo Worthy D.O. 04/17/2019 Z41.8 Encounter for other procedures for purposes Cholo Worthy D.O. other than [facility] 04/17/2019 M96.1 Postlaminectomy syndrome, not elsewhere Cholo Worthy D.O. classified 04/17/2019 Z79.891 retirement (current) use of opiate analgesic Cholo Worthy D.O. 03/19/2019 R19.7 Diarrhea, unspecified Mile Magana, P.A. 03/12/2019 Z23 Encounter for immunization Nurse's Schedule 03/12/2019 Z41.8 Encounter for other procedures for purposes Nurse's Schedule other than [facility] 02/26/2019 M54.2 Cervicalgia Cholo Worthy D.O. 02/26/2019 M54.5 Low back pain Cholo Worthy D.O. 02/26/2019 M79.604 Pain in right leg Cholo Worthy D.O. 02/26/2019 M79.605 Pain in left leg Cholo Worthy D.O. 02/26/2019 Z79.891 parimutuel clerk (current) use of opiate analgesic Cholo Worthy D.O. 02/26/2019 J44.9 Chronic obstructive pulmonary disease, Cholo Worthy D.O. unspecified 02/26/2019 I71.9 Aortic aneurysm of unspecified site, without Cholo Worthy D.O. rupture 02/26/2019 G90.09 Other idiopathic peripheral autonomic Cholo Worthy D.O. neuropathy Plan of Treatment Future Appointment(s):09/17/2019 2:15 pm - Cholo Worthy D.O. at Main [id number]/15/2019 - Cholo Worthy D.O.M96.1 Postlaminectomy syndrome, not elsewhere mtbgyzmhdlW07.891 parimutuel clerk (current) use of opiate jwiyrkqknX56.09 Other idiopathic peripheral autonomic ojszjzmkkvB95.9 Chronic obstructive pulmonary disease, unspecifiedNew Medication:Doxycycline Monohydrate 100 mg - 1 tabs by mouth twice a day for 30 daysFollow up:1 month recheck lungs and sweatting episodes.R23.2 [place] Functional Status Description No Information Available Mental Status Description No Information Available Referrals Description No Information Available
--- OUTSIDE RECORDS SUMMARY | 2019-09-15 15:09 | XMS REPORT | Continuity of Care Document ---
:1945 External Reference #:[id number] Author Name Cholo Worthy D.O. 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 Onset: Postlaminectomy syndrome, not elsewhere [...] Fentanyl apply 1 patch to 10units G90.09 hColo Worthy, 02/26/2019 50mcg/HR skin every 3 days [...] CPT Code Status Date Vaccine Lot # [id number] Given 06/18/2019 Adacel or Boostrix, TDaP [id number] 25841 Given 04/17/2019 Prevnar 13 [id number] 64999 Given 03/12/2019 Influenza Vaccine, Inactivated, Subunit, [id number] Adjuvanted, For Intrmusc Q2038 Given 03/06/2018 Influenza Vaccine (Fluzone) Administered Age 3 And Older Q2038 Given 03/01/2016 Influenza Vaccine (Fluzone) Administered Age 3 And Older Q2038 Given 03/03/2015 Influenza Vaccine (Fluzone) Administered Age 3 And Older 47921 Given 08/06/1999 Td Immunization Vital Signs Date [...] Available Procedures Date Code Description Status 10/20/2017 [id number] Colonoscopy Completed Medical Devices Description No Information Available Encounters Type Date Location Provider Dx Diagnosis Office Visit 08/15/2019 Main Office Cholo Worthy, M96.1 Postlaminectomy 2:45p D.O. 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 (current) use of opiate analgesic M96.1 Postlaminectomy syndrome, not elsewhere classified M25.511 Pain in right shoulder G90.09 Other idiopathic peripheral autonomic neuropathy J44.9 Chronic obstructive pulmonary disease, unspecified Z91.81 History of falling Z23 Encounter for immunization Z68.27 Body mass index (BMI) 27.0-27.9, adult Office Visit 04/28/2019 9:45a Main Office Cholo Worthy, Z79.891 detention D.O. 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 unspecified Office Visit 02/26/2019 9:45a Main Office Cholo Worthy, M54.2 Cervicalgia D.O. 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 08/15/2019 G90.09 Other idiopathic peripheral autonomic Cholo Worthy D.OFlaquito neuropathy 08/15/2019 J44.9 Chronic obstructive pulmonary disease, Cholo Worthy D.O. 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 04/28/2019 Z79.891 detention (current) use of opiate analgesic Cholo Worthy [...] for purposes Cholo Worthy D.O. other [facility] 04/17/2019 M96.1 Postlaminectomy syndrome, not elsewhere Cholo Worthy D.O. classified 04/17/2019 Z79.891 detention (current) use of opiate analgesic Cholo Worthy D.O. 03/19/2019 R19.7 Diarrhea, unspecified Mile Magana, P.A. 03/12/2019 Z23 Encounter for immunization Nurse's Schedule 03/12/2019 Z41.8 Encounter for other procedures for purposes Nurse's Schedule other [facility] 02/26/2019 M54.2 Cervicalgia Cholo Worthy D.O. 02/26/2019 M54.5 Low back pain Cholo Worthy D.O. 02/26/2019 M79.604 Pain in right leg Cholo Worthy D.O. 02/26/2019 M79.605 Pain in left leg Cholo Worthy D.O. 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 02/26/2019 J44.9 Chronic obstructive pulmonary disease, Cholo Worthy D.O. unspecified 02/26/2019 I71.9 Aortic aneurysm of unspecified site, without Cholo Worthy D.O. rupture 02/26/2019 G90.09 Other idiopathic peripheral autonomic Cholo Worthy D.O. neuropathy Plan of Treatment Future Appointment(s):09/17/2019 2:15 pm - Cholo Worthy D.O. at Main [id number]/15/2019 - Cholo Worthy D.O.M96.1 Postlaminectomy syndrome, not elsewhere fsshrezmmvG54.891 remote computer terminal operator (current) use of opiate fvezmtajzP74.09 Other idiopathic peripheral autonomic uxyexchqwuS95.9 Chronic obstructive pulmonary disease, unspecifiedNew Medication:Doxycycline Monohydrate 100 mg - 1 tabs by mouth twice a day for 30 daysFollow up:1 month recheck lungs and sweatting episodes. Functional Status Description No Information Available Mental Status Description No Information Available Referrals Description No Information Available
[2019-09-15 15:38] VITALS: BP 151/90
--- NOTE | 2019-09-15 15:57 | UC ---
Shoulder Pain HPI - HPI Summary HPI Summary: 73 yo man was trying to stop car and tripped and fell on the left shoulder. Significant pain and unable to left left arm. - History of Current Complaint Chief Complaint: UCUpperExtremity Stated Complaint: L SHOULDER INJ Time Seen by Provider: 09/15/19 15:45 Hx Obtained From: Patient Onset/Duration: Sudden Onset, Lasting Hours - 1 Timing: Constant Severity Initially: Severe Severity Currently: Severe Location Of Pain: Is Discrete @ - left shoulder Pain Intensity: 10 Character: Sharp, Aching, Throbbing Aggravating Factor(s): Movement Alleviating Factor(s): Rest Associated Signs And Symptoms: Positive: Negative Related History: Dominant Hand Right - Allergies/Home Medications Allergies/Adverse Reactions: Allergies Allergy/AdvReac Type Severity Reaction Status Date / Time No Known Allergies Allergy Verified 09/15/19 15:38 Home Medications: Home Medications Montelukast Sodium TAB* [Singulair 10 MG TAB*] 10 mg PO QAM 12/08/15 [History Confirmed 09/15/19] Cholecalciferol CAP/TAB(NF) [Vitamin D3 CAP/TAB (NF)] 5,000 unit PO QAM [History Confirmed 09/15/19] Fluticasone HFA 220 mcg(NF) [Flovent Hfa 220 Mcg(NF)] 2 puff INH QPM PRN [History Confirmed 09/15/19] Loratadine [Allergy Relief] 10 mg PO QAM 01/17/17 [History Confirmed 09/15/19] Albuterol HFA INHALER* [Ventolin HFA Inhaler*] 2 puff INH Q4H PRN 01/30/18 [ History Confirmed 09/15/19] Morphine Sulfate [Olivia] 80 mg PO BID PRN 01/30/18 [History Confirmed 09/15/19] [place]-3 Fatty Acids/Fish Oil [Fish Oil 1,000 mg Capsule] 1 each PO QAM 01/30/18 [History Confirmed 09/15/19] predniSONE 10 mg TAB [Deltasone 10 MG TAB*] 30 mg PO DAILY #12 tab 08/18/18 [Rx Confirmed 09/15/19] PMH/Surg Hx/FS Hx/Imm Hx Cardiovascular History: Hypertension Respiratory History: COPD Other History Of: Negative For: HIV, Hepatitis B, Hepatitis C, Anticoagulant Therapy - Surgical History Surgical History: Yes Surgery Procedure, Year, and Place: hiatal hernia repair 2010 - . neck surgery with bone graft 1988 AT [facility] - [facility]. Right inguinal hernia repair - 1967 [place]. left inguinal hernia repair 1991 - [facility]. PROSTATE SURGERY - Family History Known Family History: Positive: Cardiac Disease, Other - Aneurysm. Negative: Diabetes - Social History Occupation: Retired Lives: With Family Alcohol Use: None Substance Use Type: Excessive Caffeine Substance Use Comment - Amount & Last Used: reports 1 to 2 pots coffee per day Smoking Status (MU): Former Smoker Type: Cigarettes Amount Used/How Often: 3 ppd When Did the Patient Quit Smoking/Using Tobacco: 1975 - Immunization History Most Recent Influenza Vaccination: fall 2016 Most Recent Pneumonia Vaccination: 2012 Vaccination Up to Date: No Review of Systems All Other Systems Reviewed And Are Negative: Yes Skin: Positive: Other - laceration left eyebrow Musculoskeletal: Positive: Arthralgia - left shoulder, Decreased ROM - left shoulder Is Patient Immunocompromised?: No Physical Exam Triage Information Reviewed: Yes Appearance: Well-Appearing, Pain Distress - severe Vital Signs: Initial Vital Signs Temp 97.3 F 09/15/19 15:33 Pulse 102 09/15/19 15:33 Resp 18 09/15/19 15:33 BP 151/90 09/15/19 15:33 Pulse Ox 95 09/15/19 15:33 Eyes: Positive: Conjunctiva Inflamed Neck exam: Normal Respiratory Exam: Normal Cardiovascular Exam: Normal Musculoskeletal: Positive: ROM Limited @ - All movement left shoulder, Other: - Tender over distal clavicle and shoulder. Neurological Exam: Normal Psychological Exam: Normal Skin: Positive: Other Images Head: 1 - laceration Procedures - Joint Reduction Left Joint Reduction Site: shoulder (L) Conscious Sedation: No Reduction Attempts: 3 - Second attempt patient unable to tolerate. First attempt , clinically reduced, as was 3rd attempt. External rotation technique used. Pre-Procedure NV Exam: Yes Post Joint Reduction Film: joint not reduced - Laceration/Wound Repair 1 Location: face - left eyebrow Description: Linear Length, Depth and Shape: 1.2 cm Betadine Prep?: No Laceration/Wound Explored: clean Closure: Skin Adhesive Diagnostics - Radiology No standard instances Radiology Interpretation Completed By: Radiologist Summary of Radiographic Findings: left shoulder anterior dislocation. Shoulder Course/Dx - Course Course Of Treatment: Reduction attempted x 3 clinically successful x2 but still dislocated on post reduction film and exam. Unstable. - Differential Dx/Diagnosis Differential Diagnosis/HQI/PQRI: AC Separation, Contusion, Dislocation, Fracture (Closed) Provider Diagnosis: Traumatic anterior dislocation of left shoulder, Laceration of left eyebrow - Physician Notification/Consults Discussed Patient Care With: Velma Time Discussed With Above Provider: 17:45 Discharge ED - Sign-Out/Discharge Documenting (check all that apply): Patient Departure All imaging exams completed and their final reports reviewed: Yes - Discharge Plan Condition: Stable Disposition: HOME-RECOMMEND TO ED Patient Education Materials: Skin Adhesive Care (ED), Facial Laceration (ED), Shoulder Dislocation (ED), Closed Reduction (ED) Referrals: Cholo Worthy DO [Primary Care Provider] - Walt Verma MD [Medical Doctor] - 2 Days (follow up care shoulder dislocation. ) - Billing Disposition and Condition Condition: STABLE Disposition: Home-Recommend to ED
[2019-09-15] MEDS ORDERED: Ketorolac *IM* INJ* 60 MG/2 ML VIAL IM ONE (16:19)
== END 2019-09-15 18:05 | disposition home health service (06) ==
LOC: UCCORT 15:03
DX: S43.015A Anterior dislocation of left humerus, initial encounter (principal); S01.112A Laceration without foreign body of left eyelid and periocular area, initial encounter; W01.0XXA Fall on same level from slipping, tripping and stumbling without subsequent striking against object, initial encounter; Y93.89 Activity, other specified; Y92.9 Unspecified place or not applicable; I10 Essential (primary) hypertension; J44.9 Chronic obstructive pulmonary disease, unspecified; Z87.891 Personal history of nicotine dependence
CPT/HCPCS: 12011; 96372; 99213; G0463; J1885